=== PATIENT | male | born 1955 | race Two or more races ===

== ENCOUNTER 2025-01-30 19:58 | Emergency (ER) | payer MEDICARE, BC, SELFPAY ==
[2025-01-30 20:06] VITALS: BP 140/75
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
== END 2025-01-30 21:32 | disposition home or self-care (01) ==
LOC: EMR 19:58
PROVIDERS: EMERGENCY PHYSICIAN Emergency Medicine
DX: S16.1XXA Strain of muscle, fascia and tendon at neck level, initial encounter (principal); S80.12XA Contusion of left lower leg, initial encounter; S80.812A Abrasion, left lower leg, initial encounter; V49.40XA Driver injured in collision with unspecified motor vehicles in traffic accident, initial encounter; Y92.410 Unspecified street and highway as the place of occurrence of the external cause; I10 Essential (primary) hypertension; E78.00 Pure hypercholesterolemia, unspecified; Z95.5 Presence of coronary angioplasty implant and graft; Z98.1 Arthrodesis status
CPT/HCPCS: 99283; 73590